=== PATIENT | male | born 1955 | race Caucasian/White ===

== ENCOUNTER 2022-07-27 14:17 | Emergency (ER) | payer OTHER, BC ==
[~2022-07-27] VITALS: Ht 182.9 cm; Wt 88.5 kg
[2022-07-27 14:17] VITALS: BP_SYST 152
[2022-07-27 16:04] LABS: BASOPHILS # (AUTO) 0.1 K/uL (0.0-0.2); BASOPHILS % (AUTO) 0.6 % (0.0-2.0); EOSINOPHILS # (AUTO) 0.1 K/uL (0.0-0.4); HEMATOCRIT 39.7 % (36-54); HEMOGLOBIN 13.7 g/dL (14.0-18.0); LYMPHOCYTES # (AUTO) 1.8 K/uL (1.0-5.5); LYMPHOCYTES % (AUTO) 18.8 % (20.5-51.5); MEAN CORPUSCULAR HEMOGLOBIN 31 pg (27-31); MEAN CORPUSCULAR HGB CONC 34 % (32-36); MEAN CORPUSCULAR VOLUME 89 fL (79.0-98.0); MONOCYTES # (AUTO) 0.7 K/uL (0.0-1.0); MONOCYTES % (AUTO) 7.9 % (1.7-9.3); NEUTROPHILS # (AUTO) 6.7 K/uL (1.8-7.7); NEUTROPHILS % (AUTO) 71.7 % (40.0-70.0); PLATELET COUNT (AUTO) 382 K/uL (130-430); RED BLOOD CELL COUNT(AUTO) 4.48 MIL/uL (4.2-6.2); RED CELL DISTRIBUTION WIDTH 12.9 % (9.0-15.0); WHITE BLOOD COUNT (AUTO) 9.4 K/uL (4.8-10.8)
[2022-07-27 16:17] LABS: CALCIUM 8.7 mg/dL (8.4-11.0); CREATININE 1.34 mg/dL (0.55-1.30)
[2022-07-27 16:22] LABS: ALBUMIN 3.1 g/dL (3.4-4.8); TOTAL BILIRUBIN 0.2 mg/dL (0.0-1.0)
[2022-07-27] MEDS ORDERED: METR-154 PO (17:07)
[2022-07-27] MEDS ORDERED: LEVO-62 PO ×2 (17:09→17:16)
== END 2022-07-27 17:22 | disposition home or self-care (01) ==
LOC: SED 14:17
DX: A09 Infectious gastroenteritis and colitis, unspecified (principal); Z79.899 Other long term (current) drug therapy
CPT/HCPCS: 36415; 76376; 80053; 85025; 85610-TC; 85730-TC; 99284